=== PATIENT | male | born 1945 | race Caucasian/White ===

== ENCOUNTER 2018-01-01 12:11 | Emergency (ER) | payer MEDICARE ==
[~2018-01-01] VITALS: Ht 185.4 cm; Wt 76.2 kg
[2018-01-01 13:39] LABS: BASO # 0.1 10*3/uL (0.0-0.1); BASO % 1.1 % (0.0-1.0); EOS # 0.2 10*3/uL (0.0-0.4); EOS % 4.8 % (1.0-4.0); HEMATOCRIT 39.1 % (42.0-52.0); HEMOGLOBIN 12.2 g/dl (14.0-18.0); LYMPH # 0.6 10*3/uL (1.3-4.4); LYMPH % 14.5 % (27.0-41.0); MEAN CELL VOLUME 106.3 fl (80.0-94.0); MEAN CORPUSCULAR HGB 33.2 pg (27.0-31.0); MEAN CORPUSCULAR HGB CONC 31.2 g/dl (33.0-37.0); MEAN PLATELET VOLUME 9.9 fl (9.6-12.3); MONO # 0.5 10*3/uL (0.1-1.0); MONO % 10.6 % (3.0-9.0); NEUT % 68.5 % (47.0-73.0); PLATELET COUNT AUTOMATED 72 10*3/uL (130-400); RED BLOOD COUNT 3.68 10*6/uL (4.50-5.90); RED CELL DISTRI WIDTH 14.9 % (0-14.5); WHITE BLOOD COUNT 4.4 10*3/uL (4.8-10.8)
[2018-01-01 13:49] LABS: ACT PARTIAL THROMBO TIME 35.7 SECONDS (20.8-31.5); INTERNATIONAL NORM RATIO 3.3 (2.0-3.5)
[2018-01-01 13:52] LABS: CREATININE 3.22 mg/dL (0.70-1.30); POTASSIUM 4.4 mmol/L (3.5-5.1)
== END 2018-01-01 14:21 | disposition home or self-care (01) ==
LOC: ED
PROVIDERS: Emergency Medicine
DX: T82.838A Hemorrhage due to vascular prosthetic devices, implants and grafts, initial encounter (principal); F17.200 Nicotine dependence, unspecified, uncomplicated

== ENCOUNTER 2018-01-10 18:12 | Inpatient (IN) | payer MEDICARE ==
[~2018-01-10] VITALS: Ht 185.4 cm; Wt 81.3 kg
[2018-01-10 18:15] VITALS: BP 141/94
[2018-01-10 18:44] VITALS: BP 153/98
[2018-01-10] MEDS ORDERED: CALCIUM ACETAT667 M2 PO (18:47)
[2018-01-10] MEDS ORDERED: COREG25 MG PO (18:47)
[2018-01-10] MEDS ORDERED: COUMADIN4 M2 PO (18:48)
[2018-01-10] MEDS ORDERED: DILTIAZEM30 MG PO (18:49)
[2018-01-10 18:51] LABS: HEMATOCRIT 41.4 % (42.0-52.0); HEMOGLOBIN 12.5 g/dl (14.0-18.0); MEAN CELL VOLUME 108.9 fl (80.0-94.0); MEAN CORPUSCULAR HGB 32.9 pg (27.0-31.0); MEAN CORPUSCULAR HGB CONC 30.2 g/dl (33.0-37.0); MEAN PLATELET VOLUME 10.7 fl (9.6-12.3); PLATELET COUNT AUTOMATED 80 10*3/uL (130-400); RED CELL DISTRI WIDTH 15.3 % (0-14.5); WHITE BLOOD COUNT 9.2 10*3/uL (4.8-10.8)
[2018-01-10 19:09] LABS: ALBUMIN 3.4 gm/dl (3.1-4.5); CREATININE 5.9 mg/dL (0.70-1.30); TOTAL PROTEIN 7.8 gm/dL (6.4-8.2); TROPONIN I 0.017 ng/ml (<0.045)
[2018-01-10 19:13] LABS: POTASSIUM 6.6 mmol/L (3.5-5.1)
[2018-01-10 19:15] VITALS: BP 152/88
[2018-01-10 19:16] LABS: PLATELET SUFFICIENCY LOW (NORMAL); TOTAL CELLS COUNTED 100 #CELLS
[2018-01-10 20:50] VITALS: BP 148/92
[2018-01-10] MEDS ORDERED: ISORDIL TITRADOS5 MG PO (23:37)
[2018-01-10] MEDS ORDERED: ANTI-DIARRHEAL2 MG PO (23:38)
[2018-01-10] MEDS ORDERED: GOOD NEIGHBOR M25 M1 PO (23:39)
[2018-01-10] MEDS ORDERED: NICODERM CQ1 EAC1 T (23:40)
[2018-01-10] MEDS ORDERED: NITROSTAT0.3 M1 SL (23:44)
[2018-01-10] MEDS ORDERED: SINEMET 10-1001 EACH PO (23:44)
[2018-01-10] MEDS ORDERED: VYTORIN 10-101 EACH PO (23:45)
[2018-01-11] VITALS: BP 150/75
[2018-01-11 05:11] LABS: ALBUMIN 3.1 gm/dl (3.1-4.5); CREATININE 6.23 mg/dL (0.70-1.30); PHOSPHOROUS 4.2 mg/dL (2.5-4.9)
[2018-01-11 05:16] LABS: THYROID STIM HORMONE (HS) 1.77 uIU/ml (0.358-4.75)
[2018-01-11 07:55] LABS: HEMATOCRIT 35.5 % (42.0-52.0); HEMOGLOBIN 10.9 g/dl (14.0-18.0); MEAN CELL VOLUME 108.9 fl (80.0-94.0); MEAN CORPUSCULAR HGB 33.4 pg (27.0-31.0); MEAN CORPUSCULAR HGB CONC 30.7 g/dl (33.0-37.0); MEAN PLATELET VOLUME 10.6 fl (9.6-12.3); PLATELET COUNT AUTOMATED 56 10*3/uL (130-400); RED BLOOD COUNT 3.26 10*6/uL (4.50-5.90); RED CELL DISTRI WIDTH 15.4 % (0-14.5); WHITE BLOOD COUNT 6.3 10*3/uL (4.8-10.8)
[2018-01-11 08:00] VITALS: BP 152/74
[2018-01-11 08:22] LABS: TOTAL CELLS COUNTED 100 #CELLS
[2018-01-11 08:23] LABS: PLATELET SUFFICIENCY LOW (NORMAL)
[2018-01-11 12:00] VITALS: BP 149/87
[2018-01-11 15:14] LABS: CREATININE 3.74 mg/dL (0.70-1.30)
[2018-01-11 15:26] LABS: POTASSIUM 4.4 mmol/L (3.5-5.1)
[2018-01-11 16:00] VITALS: BP 104/54
[2018-01-11] MEDS ORDERED: VITAMIN D31000 UNI1 PO (19:49)
[2018-01-11] MEDS ORDERED: ZOSYN 2.252.25 GM/50 IV (19:49)
[2018-01-11] MEDS ORDERED: LEVOFLOXACIN500 MG PO (19:49)
[2018-01-11] MEDS ORDERED: VANCO 750750 MG/150 IV (19:49)
[2018-01-11 20:00] VITALS: BP 112/63
== END 2018-01-12 01:05 | disposition short-term general hospital (02) | DRG 314 ==
LOC: ED 18:12 → 4E 20:03 → EDHOLD 20:03 → 4E 20:16
PROVIDERS: Emergency Medicine; Internal Medicine; Internal Medicine Hospice and Palliative Medicine
PROC: 5A1D70Z Performance of Urinary Filtration, Intermittent, Less than 6 Hours Per Day (ICD-10-PCS; principal; 2018-01-11)
DX: T82.838A Hemorrhage due to vascular prosthetic devices, implants and grafts, initial encounter (principal); A41.9 Sepsis, unspecified organism; J96.00 Acute respiratory failure, unspecified whether with hypoxia or hypercapnia; R65.20 Severe sepsis without septic shock; J18.9 Pneumonia, unspecified organism; N17.9 Acute kidney failure, unspecified; J90 Pleural effusion, not elsewhere classified; I12.0 Hypertensive chronic kidney disease with stage 5 chronic kidney disease or end stage renal disease; N18.6 End stage renal disease; E87.2 Acidosis; I48.1 Persistent atrial fibrillation; E87.5 Hyperkalemia; G20 Parkinson's disease; Z66 Do not resuscitate; Z51.5 Encounter for palliative care; I25.10 Atherosclerotic heart disease of native coronary artery without angina pectoris; E55.9 Vitamin D deficiency, unspecified; L98.8 Other specified disorders of the skin and subcutaneous tissue; Y84.1 Kidney dialysis as the cause of abnormal reaction of the patient, or of later complication, without mention of misadventure at the time of the procedure; Z79.899 Other long term (current) drug therapy; Z79.01 Long term (current) use of anticoagulants; Z99.2 Dependence on renal dialysis; I25.2 Old myocardial infarction; Z90.49 Acquired absence of other specified parts of digestive tract; Z90.2 Acquired absence of lung [part of]; Y92.098 Other place in other non-institutional residence as the place of occurrence of the external cause